=== PATIENT | female | born 1980 | race Caucasian/White ===

== ENCOUNTER 2025-03-25 06:34 | Day surgery (SDC) | payer OTHER ==
[2025-03-23 10:15] VITALS: BMI 30.1
[2025-03-25] MEDS: ceFAZolin SODIUM 1 GM VIAL IVPB ONE
[2025-03-25] MEDS ORDERED: LIDOCAINE HCL 1%, 10 MG/ML (20ML VIAL) ONE (13:02)
[2025-03-25] MEDS ORDERED: PROPOFOL 20 ML ONE (13:18)
[2025-03-25] MEDS ORDERED: MIDAZOLAM HCL 2 MG/2 ML SINGLE DOSE VIAL ONE (13:19)
[2025-03-25] MEDS ORDERED: DEXAMETHASONE SOD PHOSPHATE 4 MG/1 ML VIAL ONE (13:45)
[2025-03-25] MEDS ORDERED: KETOROLAC TROMETHAMINE 30 MG/1 ML VIAL ONE (13:45)
[2025-03-25] MEDS ORDERED: ONDANSETRON 4 MG/2 ML VIAL ONE ×2 (13:45→14:37)
[2025-03-25] MEDS ORDERED: ceFAZolin SODIUM 1 GM VIAL ONE (13:47)
[2025-03-25] MEDS: ceFAZolin 2 GRAM PREMIX BAG IVPB ONE (13:49)
[2025-03-25] MEDS: LIDOCAINE HCL 1%, 10 MG/ML (20ML VIAL) INF ONE (13:58)
[2025-03-25] MEDS ORDERED: ePHEDrine SULFATE 50 MG/1 ML AMPULE ONE (14:18)
[2025-03-25] MEDS ORDERED: ONDANSETRON 4 MG/2 ML VIAL IVPUSH PRN (15:41)
[2025-03-25] MEDS ORDERED: oxyCODONE HCL 5 MG TABLET PO PRN (15:41)
[2025-03-25] MEDS ORDERED: LACTATED RINGERS SOLUTION 1,000 ML IV SCH (15:45)
[2025-03-25 16:02] VITALS: RESP 18
[2025-03-25 16:31] VITALS: BP 136/74; PULSE 79; TEMP 97.8
== END 2025-03-25 16:40 | disposition home or self-care (01) ==
LOC: JASU-SURG 06:34
PROVIDERS: ATTEND Surgery
PROC: 0HBT0ZX Excision of Right Breast, Open Approach, Diagnostic (ICD-10-PCS; principal; 2025-03-25 11:00)
DX: N60.11 Diffuse cystic mastopathy of right breast (principal); N64.59 Other signs and symptoms in breast
CPT/HCPCS: 86850; 86900; 86901; 88305-TC; 88307-TC; 88342-TC; 94760